=== PATIENT | male | born 1985 | race Caucasian/White ===

== ENCOUNTER 2017-11-23 10:28 | Emergency (ER) | payer OTHER ==
[~2017-11-23] VITALS: Ht 172.7 cm; Wt 80.7 kg
[~2017-11-23 10:28] MED LIST: ALBU90OI INH; AMOCLA875 PO; AMOX500 PO; ANTOXYBENA RIGHTEAR; ASCO500 PO; AZIT250 PO; Amoxicillin875 MG PO; BENZ100A PO; Bactrim Ds Tab1 EACH PO; CELE100; CEPH500 PO; CRUTCH3 USE; CYCL10 PO; Ciprodex Otic7.5 ML RIGHTEAR; HYDACE5 PO; IBUP800 PO; Keflex500 MG PO; NAPR500 PO; NAPR550 PO; Naprosyn500 MG PO; Norco 5-325 Ta1 EACH PO; ONDA8 PO; OXYACE5T PO; PENVK500 PO; PROCODE120 PO; PROM25 PO; PROM25S PR; Percocet 5-3251 EACH PO; RANI150 PO; RXCODACET PO; RXCYCL10 PO; RXHYDACE PO; RXNAPNA550 PO; RXOXYACE PO; RXSULTRIDS PO; SULTRIDS PO; TOBR.3OPSO OP; TRAM50 PO; Ultram50 MG PO; Valium5 MG PO; Ventolin/Prove6.7 GM INH; Zofran Odt4 MG SL; Zovirax800 MG PO
[2017-11-23] MEDS ORDERED: CEPH500 PO (10:51)
[2017-11-23] MEDS ORDERED: NAPR550 PO (10:51)
[2017-11-23] MEDS ORDERED: Bactrim Ds Tab1 EACH PO (10:51)
[2017-11-24] MEDS ORDERED: HYDR1TAB94 PO (13:14)
== END 2017-11-23 11:00 | disposition home or self-care (01) ==
LOC: ER 10:28
DX: K13.0 Diseases of lips (principal); K21.9 Gastro-esophageal reflux disease without esophagitis; F17.200 Nicotine dependence, unspecified, uncomplicated
CPT/HCPCS: 99283

== ENCOUNTER 2017-11-24 10:36 | Emergency (ER) | payer OTHER ==
[~2017-11-24] VITALS: Ht 172.7 cm; Wt 79.8 kg
[2017-11-24 12:22] LABS: BASOPHILS ABSOLUTE AUTO 0.05 K/mm3 (0.00-0.23); BASOPHILS PERCENT AUTO 0 % (0-2); EOSINOPHILS PERCENT AUTO 2 % (0-6); Hematocrit 44.6 % (37.0-53.0); IMMATURE GRAN ABSOLUTE AUTO 0.03 K/mm3 (0.00-0.10); IMMATURE GRAN PERCENT AUTO 0 % (0-1); LYMPHOCYTES ABSOLUTE AUTO 1.58 K/mm3 (0.84-5.20); LYMPHOCYTES PERCENT AUTO 14 % (21-46); MONOCYTES ABSOLUTE AUTO 1.11 K/mm3 (0.16-1.47); MONOCYTES PERCENT AUTO 10 % (4-13); Mean Corpuscular HGB 31.7 pg (26.0-34.0); Mean Corpuscular HGB Conc 33.6 g/dL (31.5-36.5); Mean Corpuscular Volume 94 fL (80-100); Mean Platelet Volume 8.5 fL (9.1-12.4); NEUTROPHILS ABSOLUTE AUTO 8.45 K/mm3 (1.96-9.15); NEUTROPHILS PERCENT AUTO 74 % (41-73); Platelet Count 335 K/mm3 (150-400); RDW Coefficient Variation 12.2 % (11.7-14.2); RDW Standard Deviation 42.7 fL (35.1-46.3); Red Blood Cell Count 4.73 M/mm3 (4.30-5.90); White Blood Cell Count 11.42 K/mm3 (4.00-11.30)
[2017-11-24 12:41] LABS: Alanine Aminotransfer (ALT/SGP 137 U/L (12-78); Albumin, Blood 3.6 g/dL (3.4-5.0); Albumin/Globulin Ratio 0.8 (0.8-1.8); Alk Phos 201 U/L (50-136); Anion Gap 6 mmol/L (6-16); Aspartate Aminotrans (AST/SGOT 89 U/L (12-37); Bilirubin, Total 0.3 mg/dL (0.1-1.0); Blood Urea Nitrogen 10 mg/dL (8-24); Bun/Creatinine Ratio 10.4 (12.0-20.0); CO2, Blood 28 mmol/L (21-32); Calcium, Blood 8.9 mg/dL (8.5-10.1); Chloride, Blood 105 mmol/L (98-108); Creatinine, Blood 0.96 mg/dL (0.60-1.20); Globulin, Blood 4.3 g/dL (2.2-4.0); Glomerular Filtration Rate >60 (60-); Glucose, Blood 107 mg/dL (70-99); Potassium, Blood 4.5 mmol/L (3.5-5.5); Sodium, Blood 139 mmol/L (136-145); Total Protein, Blood 7.9 g/dL (6.4-8.2)
[2017-11-24] MEDS ORDERED: HYDR1TAB94 PO (13:14)
== END 2017-11-24 13:30 | disposition home or self-care (01) ==
LOC: ER 10:36
PROVIDERS: Emergency Medicine
DX: L03.211 Cellulitis of face (principal); Z79.899 Other long term (current) drug therapy; K21.9 Gastro-esophageal reflux disease without esophagitis; F17.210 Nicotine dependence, cigarettes, uncomplicated
CPT/HCPCS: 36415; 80053; 85025; 96374; 99283-25; J0690

== ENCOUNTER 2019-01-29 15:19 | Inpatient (IN) | payer OTHER ==
[~2019-01-29] VITALS: Ht 172.7 cm; Wt 75.2 kg
[~2019-01-29 15:19] MED LIST changes: +HYDR1TAB94 PO
[2019-01-29 15:38] LABS: BASOPHILS ABSOLUTE AUTO 0.06 K/mm3 (0.00-0.23); BASOPHILS PERCENT AUTO 0 % (0-2); EOSINOPHILS PERCENT AUTO 0 % (0-6); Hematocrit 39.2 % (37.0-53.0); Hemoglobin 13.1 g/dL (13.5-17.5); IMMATURE GRAN ABSOLUTE AUTO 0.25 K/mm3 (0.00-0.10); IMMATURE GRAN PERCENT AUTO 1 % (0-1); LYMPHOCYTES ABSOLUTE AUTO 0.86 K/mm3 (0.84-5.20); LYMPHOCYTES PERCENT AUTO 4 % (21-46); MONOCYTES ABSOLUTE AUTO 1.66 K/mm3 (0.16-1.47); MONOCYTES PERCENT AUTO 8 % (4-13); Mean Corpuscular HGB 31.5 pg (26.0-34.0); Mean Corpuscular HGB Conc 33.4 g/dL (31.5-36.5); Mean Corpuscular Volume 94 fL (80-100); Mean Platelet Volume 8.5 fL (9.1-12.4); NEUTROPHILS ABSOLUTE AUTO 17.44 K/mm3 (1.96-9.15); NEUTROPHILS PERCENT AUTO 86 % (41-73); Platelet Count 298 K/mm3 (150-400); RDW Coefficient Variation 12.1 % (11.7-14.2); RDW Standard Deviation 42.3 fL (35.1-46.3); Red Blood Cell Count 4.16 M/mm3 (4.30-5.90); White Blood Cell Count 20.27 K/mm3 (4.00-11.30)
[2019-01-29 15:55] LABS: Alanine Aminotransfer (ALT/SGP 35 U/L (12-78); Albumin, Blood 3.3 g/dL (3.4-5.0); Albumin/Globulin Ratio 0.8 (0.8-1.8); Alk Phos 112 U/L (50-136); Anion Gap 6 mmol/L (6-16); Aspartate Aminotrans (AST/SGOT 24 U/L (12-37); Bilirubin, Total 0.8 mg/dL (0.1-1.0); Blood Urea Nitrogen 13 mg/dL (8-24); Bun/Creatinine Ratio 11.5 (12.0-20.0); CO2, Blood 25 mmol/L (21-32); Calcium, Blood 8.4 mg/dL (8.5-10.1); Chloride, Blood 103 mmol/L (98-108); Creatinine, Blood 1.13 mg/dL (0.60-1.20); Globulin, Blood 3.9 g/dL (2.2-4.0); Glomerular Filtration Rate >60 (60-); Glucose, Blood 93 mg/dL (70-99); Potassium, Blood 4.2 mmol/L (3.5-5.5); Sodium, Blood 134 mmol/L (136-145); Total Protein, Blood 7.2 g/dL (6.4-8.2)
[2019-01-29 16:06] LABS: Influenza A Negative (NEGATIVE); Influenza B Negative (NEGATIVE)
[2019-01-29] MEDS ORDERED: GABA300 PO (16:56)
[2019-01-29 19:03] LABS: Base Excess Venous -1.9 mmol/L; Bicarbonate Venous 23.1 mmol/L (24.0-30.0); PCO2 Venous 37.8 mmHg (38-42); PO2 Venous 172 mmHg (38-42); pH Blood Venous 7.39 (7.34-7.37)
--- NOTE | 2019-01-29 20:20 | NUR ---
PATIENT ARRIVED BY ER DOMINGO, TRANSFERRED SELF WITH NO ISSUES. PATIENT ALERT AND ORIENTED, C/O CHEST PAIN TO UPPER RIGHT CHEST WHEN COUGHING, DENIES NEED FOR MEDICATION AT THIS TIME. ALL VSS AND WNL EXCEPTING TACHY HEART RATE AT 98 AND TEMP AT 99.2. PATIENT ORIENTED TO ROOM AND UNIT, BELONGINGS SECURED, PT REPORTS NO VALUABLES OTHER THAN CELLPHONE. WILL CONTINUE TO MONITOR.
[2019-01-30 04:42] LABS: BASOPHILS ABSOLUTE AUTO 0.07 K/mm3 (0.00-0.23); BASOPHILS PERCENT AUTO 0 % (0-2); Hematocrit 34.7 % (37.0-53.0); Hemoglobin 11.5 g/dL (13.5-17.5); LYMPHOCYTES ABSOLUTE AUTO 2.23 K/mm3 (0.84-5.20); LYMPHOCYTES PERCENT AUTO 12 % (21-46); MONOCYTES ABSOLUTE AUTO 1.57 K/mm3 (0.16-1.47); MONOCYTES PERCENT AUTO 8 % (4-13); Mean Corpuscular HGB 31.4 pg (26.0-34.0); Mean Corpuscular HGB Conc 33.1 g/dL (31.5-36.5); Mean Corpuscular Volume 95 fL (80-100); Mean Platelet Volume 8.8 fL (9.1-12.4); Platelet Count 257 K/mm3 (150-400); RDW Coefficient Variation 12.4 % (11.7-14.2); RDW Standard Deviation 43.4 fL (35.1-46.3); Red Blood Cell Count 3.66 M/mm3 (4.30-5.90); White Blood Cell Count 19.23 K/mm3 (4.00-11.30)
[2019-01-30 04:44] LABS: EOSINOPHILS ABSOLUTE AUTO 0.02 K/mm3 (0.00-0.68); EOSINOPHILS PERCENT AUTO 0 % (0-6); IMMATURE GRAN ABSOLUTE AUTO 0.84 K/mm3 (0.00-0.10); IMMATURE GRAN PERCENT AUTO 4 % (0-1); NEUTROPHILS PERCENT AUTO 75 % (41-73)
[2019-01-30 04:56] LABS: Anion Gap 5 mmol/L (6-16); Blood Urea Nitrogen 21 mg/dL (8-24); CO2, Blood 25 mmol/L (21-32); Calcium, Blood 7.9 mg/dL (8.5-10.1); Chloride, Blood 107 mmol/L (98-108); Glomerular Filtration Rate >60 (60-); Glucose, Blood 79 mg/dL (70-99); Potassium, Blood 4.1 mmol/L (3.5-5.5); Sodium, Blood 137 mmol/L (136-145)
[2019-01-30 05:14] LABS: U Amphetamine Screen DETECTED; U Methamphetamine Screen DETECTED
[2019-01-30 05:15] LABS: U Barbituate Screen Not Detected; U Benzodiazapine Screen Not Detected; U Buprenorphine Screen Not Detected; U Cannabinoids Screen Not Detected; U Cocaine Screen Not Detected; U Methadone Screen Not Detected; U Opiates Screen DETECTED; U Oxycodone Screen Not Detected; U Phencyclidine Screen Not Detected; U Propoxyphene Screen Not Detected
[2019-01-30 06:53] LABS: Adenovirus Not Detected (NOT DETECT); Bordetella pertussis Not Detected (NOT DETECT); Chlamydophila pneumoniae Not Detected (NOT DETECT); Coronavirus 229E Not Detected (NOT DETECT); Coronavirus HKU1 Not Detected (NOT DETECT); Coronavirus NL63 Not Detected (NOT DETECT); Coronavirus OC43 Not Detected (NOT DETECT); Human Metapneumovirus Not Detected (NOT DETECT); Human Rhinovirus/Enterovirus Detected (NOT DETECT); Influenza A Not Detected (NOT DETECT); Influenza A/2009-H1 Not Detected (NOT DETECT); Influenza A/H1 Not Detected (NOT DETECT); Influenza A/H3 Not Detected (NOT DETECT); Influenza B Not Detected (NOT DETECT); Mycoplasma pneumoniae Not Detected (NOT DETECT); Parainfluenza Virus 1 Not Detected (NOT DETECT); Parainfluenza Virus 2 Not Detected (NOT DETECT); Parainfluenza Virus 3 Not Detected (NOT DETECT); Parainfluenza Virus 4 Not Detected (NOT DETECT); Respiratory Syncytial Virus Not Detected (NOT DETECT)
--- NOTE | 2019-01-30 07:45 | NUR ---
SHIFT SUMMARY PATIENT SLEPT SOUNDLY FOR MOST OF THE SHIFT. PATIENT REPORTS BEING A LIGHT SLEEPER, BUT REQUIRED LOUD VOICE AND SOMETIMES TOUCH TO ROUSE FOR ROUTINE INTERVENTIONS. PATIENT WAS MEDICATED ONCE PER REQUEST FOR PAIN TO UPPER RT CHEST, AND SOON AFTERWARDS WAS ASLEEP AGAIN. OTHERWISE NO ISSUES. RESP PANEL AND URINE TOX SAMPLES OBTAINED AND SENT TO LAB. PATIENT REMAINED ABOVE 94% O2 SATURATION ON ROOM AIR FOR THE ENTIRE SHIFT, AND LUNG SOUNDS WERE CLEAR TO COARSE, WITH NO CRACKLES. PASSED CARE AND REPORT TO ONCOMING SHIFT AT 0700, PATIENT SLEEPING IN BED, BED LOCKED AND LOW, CALL LIGHT W/IN REACH
--- NOTE | 2019-01-30 08:00 | NUR ---
pt laying in bed asking for pain meds, but falls asleep. will be here soon will ask for oral pain meds. pt is a/ox3, pleasant and cooperative with care, follows commands well, lungs are clear in upper tovar, course in bases, resp even and unlabored at rest, but becomes labored with activity, is on r/a, has a harsh occ productive cough, hrr, tele in place running st per monitor, see strip, no edema noted, ppp+2, cap refill <3 sec, vs stable, afebrile, iv site is clear and patent, btx4, abd flat soft nontender, voids without diff, skin c/w/d, maew, gerardo, call light in reach.
--- NOTE | 2019-01-30 13:30 | NUR ---
pt laying in bed, going to take a shower, doing ok, but hurts when coughs, oral pain meds were given. call light in reach.
--- NOTE | 2019-01-30 18:13 | NUR ---
pt resting in bed, he did have a shower today and gets up indep to br, gave him an I.S. and flutter he worked on it a lot and was able to bring up some phlem. no further needs, call light in reach.
--- NOTE | 2019-01-30 22:14 | NUR ---
ASSUMED CARE APPROXIMATELY 1900; PT A&O; COMPLIANT W/ CARE; PT ON RA W/ O2 SATS>94; PT STATES HE HAS SMALL AMOUNT OF BLOOD IN SPUTUM; LUNG SOUNDS COARSE IN BASES; NO TELE IN PLACE; CALL LIGHT IN REACH; BED IN LOWEST POSITION; WILL CONTINUE TO MONITOR CLOSELY
[2019-01-31 04:44] LABS: BASOPHILS ABSOLUTE AUTO 0.07 K/mm3 (0.00-0.23); BASOPHILS PERCENT AUTO 1 % (0-2); EOSINOPHILS ABSOLUTE AUTO 0.22 K/mm3 (0.00-0.68); EOSINOPHILS PERCENT AUTO 2 % (0-6); Hematocrit 33.8 % (37.0-53.0); Hemoglobin 11.1 g/dL (13.5-17.5); IMMATURE GRAN ABSOLUTE AUTO 0.06 K/mm3 (0.00-0.10); IMMATURE GRAN PERCENT AUTO 1 % (0-1); LYMPHOCYTES ABSOLUTE AUTO 2.16 K/mm3 (0.84-5.20); LYMPHOCYTES PERCENT AUTO 18 % (21-46); MONOCYTES ABSOLUTE AUTO 0.75 K/mm3 (0.16-1.47); MONOCYTES PERCENT AUTO 6 % (4-13); Mean Corpuscular HGB 31.7 pg (26.0-34.0); Mean Corpuscular HGB Conc 32.8 g/dL (31.5-36.5); Mean Corpuscular Volume 97 fL (80-100); Mean Platelet Volume 9.1 fL (9.1-12.4); NEUTROPHILS ABSOLUTE AUTO 8.74 K/mm3 (1.96-9.15); NEUTROPHILS PERCENT AUTO 73 % (41-73); Platelet Count 255 K/mm3 (150-400); RDW Coefficient Variation 12.5 % (11.7-14.2); RDW Standard Deviation 44.4 fL (35.1-46.3)
--- NOTE | 2019-01-31 06:03 | NUR ---
SHIFT SUMMARY PT A&O; INDEPENDENT IN ROOM; COMPLIANT W/ CARE; SLEPT SEVERAL HOURS IN BETWEEN INTERVENTIONS; STATES CHEST HURTS W/ COUGHING; ATE SANDWICH AND PUDDING IN NIGHT; PT ON RA SATS >94; CRACKLES PRESENT; CALL LIGHT IN REACH; BED IN LOWEST POSITION; WILL CONTINUE TO MONITOR UNTIL HAND OFF TO DAY SHIFT RN.
--- NOTE | 2019-01-31 08:19 | NUR ---
AM NOTE... ASSUMED CARE OF PT APROX 0700. PT IS A&Ox4 AND IND IN THE ROOM. PT WAS ADMITTED FOR PNA. PT IS CURRENTLY ON RA WITH O2 SATS AT 97%. PT STATES THAT HE FEELS SOB, RR IS 18 EVEN AND UNLABORED. PT IS IN NSR IN THE 80'S, NO EDEMA IS NOTED, PT STATES THAT THE FIRST 2 FINGERS ON HIS RIGHT HAND "FEEL SWOLLEN TO ME AND ARE RENEE NUMB AND TINGLING." BOTH OF PT'S HANDS AND FINGERS/FINGERNAILS ARE CRACKED AND DIRTY, SHOWER HAS BEEN ENCOURAGED TODAY. L/S CLEAR IN THE UPPER LOBE AND COARSE IN THE MID AND LOWER LOBES. BT PRESENT AND HYPERACTIVE, ABD IS SOFT AND NONTENDER TO PALP. PT ATE ALL OF HIS BREAKFAST TRAY AND WAS REQUESTING ANOTHER, AND EXTRA TRAY WAS ORDERED FOR THE PT. CALL LIGHT IN REACH, WILL CONTINUE TO MONITOR.
--- NOTE | 2019-01-31 12:48 | NUR ---
echocardiogram complete
--- NOTE | 2019-01-31 18:03 | NUR ---
SHIFT SUMAMRY... NO ACUTE NEGATIVE CHANGES NOTED THIS SHIFT. PT'S VS HAVE BEEN STABLE, PT HAS BEEN IND IN THE ROOM. PT DENIES CHEST PAIN/PRESSURE N/V OR SOB. CALL LIGHT IN REACH, BED IS LOCKED AND LOW WILL CONTINUE TO MONITOR UNTIL REPORT IS GIVEN TO ONCOMING RN.
--- NOTE | 2019-01-31 19:40 | NUR ---
ASSUMED CARE APPROXIMATELY 1900; PT A&O x4; PT PLEASANT AND COMPLIANT W/ CARE; PT REQUEST NUMEROUS SNACKS AND IS APPRECIATIVE; PT ON RA; O2 SATS >94; VSS; PT DENIES CHEST PAIN; DENIES NEEDS AT THIS TIME; CALL LIGHT IN REACH; BED IN LOWEST POSITION; WILL CONTINUE TO MONITOR CLOSELY
[2019-02-01 06:14] LABS: BASOPHILS ABSOLUTE AUTO 0.06 K/mm3 (0.00-0.23); BASOPHILS PERCENT AUTO 1 % (0-2); EOSINOPHILS ABSOLUTE AUTO 0.25 K/mm3 (0.00-0.68); EOSINOPHILS PERCENT AUTO 4 % (0-6); Hematocrit 35.1 % (37.0-53.0); Hemoglobin 11.6 g/dL (13.5-17.5); IMMATURE GRAN ABSOLUTE AUTO 0.04 K/mm3 (0.00-0.10); IMMATURE GRAN PERCENT AUTO 1 % (0-1); LYMPHOCYTES ABSOLUTE AUTO 2.04 K/mm3 (0.84-5.20); LYMPHOCYTES PERCENT AUTO 35 % (21-46); MONOCYTES ABSOLUTE AUTO 0.49 K/mm3 (0.16-1.47); MONOCYTES PERCENT AUTO 8 % (4-13); Mean Corpuscular HGB 31.4 pg (26.0-34.0); Mean Corpuscular Volume 95 fL (80-100); Mean Platelet Volume 8.8 fL (9.1-12.4); NEUTROPHILS ABSOLUTE AUTO 2.98 K/mm3 (1.96-9.15); NEUTROPHILS PERCENT AUTO 51 % (41-73); Platelet Count 323 K/mm3 (150-400); RDW Coefficient Variation 12.3 % (11.7-14.2); RDW Standard Deviation 42.9 fL (35.1-46.3); Red Blood Cell Count 3.69 M/mm3 (4.30-5.90); White Blood Cell Count 5.86 K/mm3 (4.00-11.30)
[2019-02-01] MEDS ORDERED: CLIN300 PO (10:42)
--- NOTE | 2019-02-01 11:18 | NUR ---
DISCHARGE PT DISCHARGED TOT HE STREETS. [place]. HE WAS UNABLE TO REACH A PERSONAL RIDE. HE RFUSED A TAXI TO [facility]. HE WANTED TO WALK. ATTEMPTED TO TALK HIM INTO A RIDE. [facility] DID PROVIDE PT ANTIBIOTIC THRU [facility] =MALL. PT WILL LEAVE AFTER LUNCH. CONTINUE POT.
== END 2019-02-01 12:12 | disposition home or self-care (01) | DRG 871 ==
LOC: ER 15:19 → PCU 17:30
PROVIDERS: Hospitalist; Physician Assistant; ADMIT Internal Medicine
DX: A41.89 Other specified sepsis (principal); J18.9 Pneumonia, unspecified organism; E87.1 Hypo-osmolality and hyponatremia; R65.20 Severe sepsis without septic shock; R19.7 Diarrhea, unspecified; F19.10 Other psychoactive substance abuse, uncomplicated; F17.210 Nicotine dependence, cigarettes, uncomplicated
CPT/HCPCS: 0099U; 36415; 71046; 80048; 80053; 82803; 83605; 84145; 85025; 87040; 87077; 87186; 87804; 93005; 93010; 93306; 94640; 94667; 94760; 96365; 96375; 99285-25; J0456; J0696; J1170; J1650; J1885; J2405; J7030; J7050

== ENCOUNTER 2020-02-07 21:51 | Emergency (ER) | payer OTHER ==
[~2020-02-07] VITALS: Ht 172.7 cm; Wt 77.1 kg
[~2020-02-07 21:51] MED LIST changes: +CLIN300 PO; +GABA300 PO
[2020-02-07 22:08] LABS: BASOPHILS ABSOLUTE AUTO 0.06 K/mm3 (0.00-0.23); BASOPHILS PERCENT AUTO 1 % (0-2); EOSINOPHILS ABSOLUTE AUTO 0.16 K/mm3 (0.00-0.68); EOSINOPHILS PERCENT AUTO 2 % (0-6); Hematocrit 47.5 % (37.0-53.0); Hemoglobin 15.3 g/dL (13.5-17.5); IMMATURE GRAN ABSOLUTE AUTO 0.02 K/mm3 (0.00-0.10); IMMATURE GRAN PERCENT AUTO 0 % (0-1); LYMPHOCYTES ABSOLUTE AUTO 0.82 K/mm3 (0.84-5.20); LYMPHOCYTES PERCENT AUTO 9 % (21-46); MONOCYTES ABSOLUTE AUTO 1.05 K/mm3 (0.16-1.47); MONOCYTES PERCENT AUTO 11 % (4-13); Mean Corpuscular HGB 30.2 pg (26.0-34.0); Mean Corpuscular HGB Conc 32.2 g/dL (31.5-36.5); Mean Corpuscular Volume 94 fL (80-100); Mean Platelet Volume 8.4 fL (9.1-12.4); NEUTROPHILS ABSOLUTE AUTO 7.41 K/mm3 (1.96-9.15); NEUTROPHILS PERCENT AUTO 78 % (41-73); Platelet Count 302 K/mm3 (150-400); RDW Coefficient Variation 12.6 % (11.7-14.2); RDW Standard Deviation 43.4 fL (35.1-46.3); Red Blood Cell Count 5.07 M/mm3 (4.30-5.90); White Blood Cell Count 9.52 K/mm3 (4.00-11.30)
[2020-02-07 22:26] LABS: Alanine Aminotransfer (ALT/SGP 124 U/L (12-78); Albumin, Blood 3.7 g/dL (3.4-5.0); Albumin/Globulin Ratio 0.8 (0.8-1.8); Alk Phos 231 U/L (50-136); Anion Gap 4 mmol/L (6-16); Aspartate Aminotrans (AST/SGOT 50 U/L (12-37); Bilirubin, Total 0.4 mg/dL (0.1-1.0); Blood Urea Nitrogen 16 mg/dL (8-24); Bun/Creatinine Ratio 18.6 (12.0-20.0); CO2, Blood 26 mmol/L (21-32); Calcium, Blood 9.3 mg/dL (8.5-10.1); Chloride, Blood 105 mmol/L (98-108); Creatinine, Blood 0.86 mg/dL (0.60-1.20); Globulin, Blood 4.6 g/dL (2.2-4.0); Glomerular Filtration Rate >60 (60-); Glucose, Blood 100 mg/dL (70-99); Potassium, Blood 4.8 mmol/L (3.5-5.5); Sodium, Blood 135 mmol/L (136-145); Total Protein, Blood 8.3 g/dL (6.4-8.2)
[2020-02-07 23:35] LABS: Influenza A, PCR Negative (NEGATIVE); Influenza B, PCR Negative (NEGATIVE); Resp Syncytial Virus, PCR Negative (NEGATIVE); SARS-Cov-2 (COVID-19) PCR, MMC Negative (NEGATIVE)
[2020-02-07] MEDS ORDERED: DICY20 PO (23:40)
[2020-02-07] MEDS ORDERED: ONDA4ODT MM (23:40)
== END 2020-02-08 | disposition home or self-care (01) ==
LOC: ER 21:51
PROVIDERS: Physician Assistant
DX: K52.9 Noninfective gastroenteritis and colitis, unspecified (principal); K21.9 Gastro-esophageal reflux disease without esophagitis; F17.210 Nicotine dependence, cigarettes, uncomplicated; Z79.899 Other long term (current) drug therapy; Z20.828 Contact with and (suspected) exposure to other viral communicable diseases
CPT/HCPCS: 0241U; 36415; 80053; 83690; 85025; 96374; 96375; 99284-25; A9270-GY; J1885; J2405; J7030

== ENCOUNTER 2020-08-13 10:37 | Emergency (ER) | payer OTHER ==
[~2020-08-13] VITALS: Ht 172.7 cm; Wt 81.7 kg
[~2020-08-13 10:37] MED LIST changes: +DICY20 PO; +ONDA4ODT MM
[2020-08-13] MEDS ORDERED: KETO10 PO (12:41)
== END 2020-08-13 12:55 | disposition home or self-care (01) ==
LOC: ER 10:37
DX: S91.311A Laceration without foreign body, right foot, initial encounter (principal); F17.210 Nicotine dependence, cigarettes, uncomplicated; Z79.899 Other long term (current) drug therapy; W26.0XXA Contact with knife, initial encounter
CPT/HCPCS: 73630; 99283-25

== ENCOUNTER 2020-08-17 03:30 | Emergency (ER) | payer OTHER ==
[~2020-08-17] VITALS: Ht 172.7 cm; Wt 86.2 kg
[~2020-08-17 03:30] MED LIST changes: +KETO10 PO
[2020-08-17] MEDS ORDERED: Veetids 500500 MG PO (05:08)
== END 2020-08-17 05:19 | disposition home or self-care (01) ==
LOC: ER 03:30
DX: J02.0 Streptococcal pharyngitis (principal); K21.9 Gastro-esophageal reflux disease without esophagitis; F17.210 Nicotine dependence, cigarettes, uncomplicated; Z79.899 Other long term (current) drug therapy
CPT/HCPCS: 87430; 96372; 99283-25; A9270; J1100; J1885

== ENCOUNTER 2020-09-10 01:10 | Emergency (ER) | payer OTHER ==
[~2020-09-10 01:10] MED LIST changes: +Veetids 500500 MG PO
== END 2020-09-10 01:25 | disposition left against medical advice (07) ==
LOC: ER 01:10
DX: Z53.21 Procedure and treatment not carried out due to patient leaving prior to being seen by health care provider (principal)
CPT/HCPCS: 96376

== ENCOUNTER 2021-02-04 03:10 | Emergency (ER) | payer OTHER ==
[~2021-02-04] VITALS: Ht 172.7 cm; Wt 81.7 kg
[~2021-02-04 03:10] MED LIST changes: +Neurontin 300300 MG PO; +Voltaren100 GM TOP
[2021-02-04] MEDS ORDERED: IBU600 MG PO (03:45)
[2021-02-04] MEDS ORDERED: Bactrim Ds Tab1 EACH PO (03:45)
[2021-02-04 04:22] LABS: U Amphetamine Screen DETECTED; U Barbituate Screen Not Detected; U Benzodiazapine Screen Not Detected; U Buprenorphine Screen Not Detected; U Cannabinoids Screen Not Detected; U Cocaine Screen Not Detected; U Methadone Screen Not Detected; U Methamphetamine Screen DETECTED; U Opiates Screen Not Detected; U Oxycodone Screen Not Detected; U Phencyclidine Screen Not Detected; U Propoxyphene Screen Not Detected
[2021-02-04] MEDS ORDERED: CEPH500 PO (23:18)
== END 2021-02-04 04:08 | disposition home or self-care (01) ==
LOC: ER 03:10
PROVIDERS: Emergency Medicine
DX: L03.116 Cellulitis of left lower limb (principal); F17.210 Nicotine dependence, cigarettes, uncomplicated
CPT/HCPCS: 99283; A9270

== ENCOUNTER 2021-02-04 21:54 | Inpatient (IN) | payer OTHER ==
[~2021-02-04] VITALS: Ht 172.7 cm; Wt 81.7 kg
[~2021-02-04 21:54] MED LIST changes: +IBU600 MG PO
[2021-02-04] MEDS ORDERED: CEPH500 PO (23:18)
[2021-02-05 00:01] LABS: BASOPHILS ABSOLUTE AUTO 0.13 K/mm3 (0.00-0.23); BASOPHILS PERCENT AUTO 1 % (0-2); EOSINOPHILS ABSOLUTE AUTO 0.56 K/mm3 (0.00-0.68); EOSINOPHILS PERCENT AUTO 4 % (0-6); Hematocrit 36.7 % (37.0-53.0); Hemoglobin 12.6 g/dL (13.5-17.5); IMMATURE GRAN ABSOLUTE AUTO 0.07 K/mm3 (0.00-0.10); IMMATURE GRAN PERCENT AUTO 1 % (0-1); LYMPHOCYTES ABSOLUTE AUTO 2.07 K/mm3 (0.84-5.20); LYMPHOCYTES PERCENT AUTO 14 % (21-46); MONOCYTES ABSOLUTE AUTO 1.91 K/mm3 (0.16-1.47); MONOCYTES PERCENT AUTO 13 % (4-13); Mean Corpuscular HGB 30.5 pg (26.0-34.0); Mean Corpuscular HGB Conc 34.3 g/dL (31.5-36.5); Mean Corpuscular Volume 89 fL (80-100); Mean Platelet Volume 8.6 fL (9.1-12.4); NEUTROPHILS ABSOLUTE AUTO 10.57 K/mm3 (1.96-9.15); NEUTROPHILS PERCENT AUTO 69 % (41-73); Platelet Count 419 K/mm3 (150-400); RDW Coefficient Variation 12.2 % (11.7-14.2); RDW Standard Deviation 39.8 fL (35.1-46.3); Red Blood Cell Count 4.13 M/mm3 (4.30-5.90); White Blood Cell Count 15.31 K/mm3 (4.00-11.30)
[2021-02-05 00:23] LABS: Alanine Aminotransfer (ALT/SGP 152 U/L (12-78); Albumin, Blood 3.1 g/dL (3.4-5.0); Albumin/Globulin Ratio 0.6 (0.8-1.8); Alk Phos 316 U/L (50-136); Anion Gap 7 mmol/L (6-16); Aspartate Aminotrans (AST/SGOT 77 U/L (12-37); Bilirubin, Total 0.7 mg/dL (0.1-1.0); Blood Urea Nitrogen 17 mg/dL (8-24); CO2, Blood 26 mmol/L (21-32); Calcium, Blood 9.3 mg/dL (8.5-10.1); Chloride, Blood 101 mmol/L (98-108); Creatinine, Blood 1.06 mg/dL (0.60-1.20); Globulin, Blood 4.9 g/dL (2.2-4.0); Glomerular Filtration Rate >60 (60-); Glucose, Blood 94 mg/dL (70-99); Potassium, Blood 4.2 mmol/L (3.5-5.5); Sodium, Blood 134 mmol/L (136-145)
[2021-02-05 08:06] LABS: BASOPHILS PERCENT AUTO 1 % (0-2); EOSINOPHILS ABSOLUTE AUTO 0.47 K/mm3 (0.00-0.68); EOSINOPHILS PERCENT AUTO 4 % (0-6); Hematocrit 36.4 % (37.0-53.0); IMMATURE GRAN ABSOLUTE AUTO 0.03 K/mm3 (0.00-0.10); IMMATURE GRAN PERCENT AUTO 0 % (0-1); LYMPHOCYTES ABSOLUTE AUTO 1.54 K/mm3 (0.84-5.20); LYMPHOCYTES PERCENT AUTO 13 % (21-46); MONOCYTES PERCENT AUTO 11 % (4-13); Mean Corpuscular HGB 30.2 pg (26.0-34.0); Mean Corpuscular Volume 92 fL (80-100); Mean Platelet Volume 8.6 fL (9.1-12.4); NEUTROPHILS ABSOLUTE AUTO 8.02 K/mm3 (1.96-9.15); NEUTROPHILS PERCENT AUTO 70 % (41-73); Platelet Count 371 K/mm3 (150-400); RDW Coefficient Variation 12.3 % (11.7-14.2); RDW Standard Deviation 41.4 fL (35.1-46.3); Red Blood Cell Count 3.97 M/mm3 (4.30-5.90); White Blood Cell Count 11.46 K/mm3 (4.00-11.30)
[2021-02-05 08:24] LABS: Alanine Aminotransfer (ALT/SGP 127 U/L (12-78); Albumin, Blood 2.7 g/dL (3.4-5.0); Albumin/Globulin Ratio 0.7 (0.8-1.8); Alk Phos 297 U/L (50-136); Anion Gap 6 mmol/L (6-16); Aspartate Aminotrans (AST/SGOT 59 U/L (12-37); Bilirubin, Total 0.7 mg/dL (0.1-1.0); Blood Urea Nitrogen 16 mg/dL (8-24); Bun/Creatinine Ratio 15.8 (12.0-20.0); CO2, Blood 28 mmol/L (21-32); Calcium, Blood 8.4 mg/dL (8.5-10.1); Chloride, Blood 104 mmol/L (98-108); Creatinine, Blood 1.01 mg/dL (0.60-1.20); Globulin, Blood 3.8 g/dL (2.2-4.0); Glomerular Filtration Rate >60 (60-); Glucose, Blood 134 mg/dL (70-99); Potassium, Blood 4.1 mmol/L (3.5-5.5); Sodium, Blood 138 mmol/L (136-145); Total Protein, Blood 6.5 g/dL (6.4-8.2)
--- NOTE | 2021-02-05 17:35 | NUR ---
SUMMARY PT ADMITTED FROM THE ER FOR CELLULITIS, PT IS ALERT AND ORIENTED, USES A CANE OUTPATIENT FOR AMBULATION, PT'S LLE IS RED AND WARM TO THE TOUCH, NO OPEN AREAS OR DRAINAGE NOTED, ORTHO CONSULT CALLED, PT MED PER EMAR FOR PAIN, VSS, WILL CONTINUE TO MONITOR
[2021-02-06 04:41] LABS: BASOPHILS ABSOLUTE AUTO 0.09 K/mm3 (0.00-0.23); BASOPHILS PERCENT AUTO 1 % (0-2); EOSINOPHILS ABSOLUTE AUTO 0.62 K/mm3 (0.00-0.68); EOSINOPHILS PERCENT AUTO 5 % (0-6); Hematocrit 36.4 % (37.0-53.0); IMMATURE GRAN ABSOLUTE AUTO 0.04 K/mm3 (0.00-0.10); IMMATURE GRAN PERCENT AUTO 0 % (0-1); LYMPHOCYTES ABSOLUTE AUTO 1.67 K/mm3 (0.84-5.20); LYMPHOCYTES PERCENT AUTO 14 % (21-46); MONOCYTES ABSOLUTE AUTO 1.38 K/mm3 (0.16-1.47); MONOCYTES PERCENT AUTO 11 % (4-13); Mean Corpuscular HGB 30.5 pg (26.0-34.0); Mean Corpuscular Volume 92 fL (80-100); Mean Platelet Volume 8.6 fL (9.1-12.4); NEUTROPHILS ABSOLUTE AUTO 8.43 K/mm3 (1.96-9.15); NEUTROPHILS PERCENT AUTO 69 % (41-73); Platelet Count 400 K/mm3 (150-400); RDW Coefficient Variation 12.3 % (11.7-14.2); Red Blood Cell Count 3.94 M/mm3 (4.30-5.90); White Blood Cell Count 12.23 K/mm3 (4.00-11.30)
--- NOTE | 2021-02-06 04:41 | NUR ---
PATIENT IS A7O X4. VERY IRRITIBLE. GAIT IS WEAK DUE TO PAIN IN LLE. STANDBY ASSIST OF ONE. PATIENTS FEVER HAS SUBSIDED AT THIS TIME. BLOOD CULTURE + FOR GRAM + COCCI IN CLUSTERS. PT HAS LR RUNNING @ 100ML/HR.
[2021-02-06 05:06] LABS: Anion Gap 6 mmol/L (6-16); Blood Urea Nitrogen 14 mg/dL (8-24); Bun/Creatinine Ratio 14.8 (12.0-20.0); CO2, Blood 25 mmol/L (21-32); Calcium, Blood 8.9 mg/dL (8.5-10.1); Chloride, Blood 107 mmol/L (98-108); Creatinine, Blood 0.95 mg/dL (0.60-1.20); Glomerular Filtration Rate >60 (60-); Glucose, Blood 103 mg/dL (70-99); Potassium, Blood 4.8 mmol/L (3.5-5.5); Sodium, Blood 138 mmol/L (136-145)
--- NOTE | 2021-02-06 10:36 | NUR ---
DR. DOTY ROUNDED. PT IS NOW NPO FOR POSSIBLE SURGERY LATER TODAY. PLAN TO GET PT TO THE SHOWER AND EDUCATE HIM TO CLEAN WITH CHLORHEXADINE SOAP PRIOR TO SURGERY.
--- NOTE | 2021-02-06 15:41 | NUR ---
Upon receiving a spiritual care referral, I visit pt. Pt tells me about his infection and the procedure that is scheduled to remove said infection. Pt then talks about the struggle he is having with Meth addiction, PTSD, family unit complications and financial struggles. I encourage self-care, discuss strategies for healthier living and relationship building. Pt also discusses his belief in aliens and his distress with his [employer] refugio. I provide theological insights and therapeutic listening. Patient responds well and shows signs of increased hope. I will continue to remain available to patient and family.
--- NOTE | 2021-02-06 16:03 | NUR ---
History, Chart, Medications and Allergies reviewed before start of procedure. Lungs clear T/O to Auscultation. Patient confirms NPO status and agrees with scheduled surgery. Pre-Op teaching done. Pt verbalizes understanding.
--- NOTE | 2021-02-06 17:12 | NUR ---
02/06/21 1712 Moraima Mackey PATIENT ON SCHEDULED ANTIBIOTICS. ANCEF 1G GIVEN AT 1308. VANCO 1G GIVEN AT 1425
--- NOTE | 2021-02-06 18:09 | NUR ---
PT ARRIVED TO THE ROOM FROM PACU AT APPROXIMATELY 1745. PT IS ALERT AND ORIENTED. PAIN MANAGED WHILE AT REST. PT REQUESTING FOOD. TOLERATING WELL AT THIS TIME. BP ELEVATED OTHER VSS. WILL CONTINUE TO MONITOR.
--- NOTE | 2021-02-06 19:30 | NUR ---
SHIFT SUMMARY PT IS POD#0 FROM L KNEE I&D. PT IS ALERT AND ORIENTED. ABLE TO MOBILIZE USING A CANE AND WILL NEED A KNEE IMMOBLIZER WHEN OOB POST-OP. PT IS TOLERATING PO. PAIN MANAGED WITH PO PAIN MEDICATION. VSS. REPORT GIVEN TO ELAINE MARIE.
--- NOTE | 2021-02-07 04:47 | NUR ---
PATIENT SLEPT MOST OF THE SHIFT. HE REQUIRED NO PRN PAIN MEDICATION. USED URINAL OVERNIGHT BUT IF HE IS OUT OF BED WILL REQUIRE A LEG IMMOBILIZER. A&O X4. VERBALIZED NO QUESTIONS OR CONCERNS.
[2021-02-07 05:32] LABS: BASOPHILS ABSOLUTE AUTO 0.03 K/mm3 (0.00-0.23); BASOPHILS PERCENT AUTO 0 % (0-2); EOSINOPHILS ABSOLUTE AUTO 0.01 K/mm3 (0.00-0.68); EOSINOPHILS PERCENT AUTO 0 % (0-6); Hematocrit 36.4 % (37.0-53.0); IMMATURE GRAN ABSOLUTE AUTO 0.08 K/mm3 (0.00-0.10); IMMATURE GRAN PERCENT AUTO 1 % (0-1); LYMPHOCYTES ABSOLUTE AUTO 0.86 K/mm3 (0.84-5.20); LYMPHOCYTES PERCENT AUTO 7 % (21-46); MONOCYTES ABSOLUTE AUTO 0.76 K/mm3 (0.16-1.47); MONOCYTES PERCENT AUTO 6 % (4-13); Mean Corpuscular HGB 30.5 pg (26.0-34.0); Mean Corpuscular Volume 93 fL (80-100); Mean Platelet Volume 9.6 fL (9.1-12.4); NEUTROPHILS ABSOLUTE AUTO 11.35 K/mm3 (1.96-9.15); NEUTROPHILS PERCENT AUTO 87 % (41-73); Platelet Count 415 K/mm3 (150-400); RDW Standard Deviation 41.1 fL (35.1-46.3); Red Blood Cell Count 3.93 M/mm3 (4.30-5.90); White Blood Cell Count 13.09 K/mm3 (4.00-11.30)
[2021-02-07 06:18] LABS: Anion Gap 8 mmol/L (6-16); Blood Urea Nitrogen 16 mg/dL (8-24); Bun/Creatinine Ratio 18.6 (12.0-20.0); CO2, Blood 24 mmol/L (21-32); Calcium, Blood 8.6 mg/dL (8.5-10.1); Chloride, Blood 106 mmol/L (98-108); Creatinine, Blood 0.86 mg/dL (0.60-1.20); Glomerular Filtration Rate >60 (60-); Glucose, Blood 137 mg/dL (70-99); Potassium, Blood 5.5 mmol/L (3.5-5.5); Sodium, Blood 138 mmol/L (136-145)
--- NOTE | 2021-02-07 08:40 | NUR ---
PT C/O IV SITE BLEEDING. SMALL AMOUNT OF BLOOD NOTED AT THE SITE, DRESSING WAS LOOSE, IV DRESSING WAS CHANGED IV FLUSHED WELL AFTER THE CHANGE, NO REDNESS OR PAIN WITH FLUSH IVF AND ABX INFUSION RESUMED AFTER DRESSING CHANGE.
[2021-02-07 12:52] LABS: Vancomycin, Trough 14.2 ug/mL (5.0-10.0)
--- NOTE | 2021-02-07 17:49 | NUR ---
SUMMARY: PT IS POD1 L KNEE I&D. A/O, VSS. SURGICAL SITE WNL, IMMOBILIZER IN PLACE. PT ABLE TO AMBULATE IN ROOM WITH THERAPY. PT REPORTS MORE PAIN WITH MOVEMENT, MEDICATED X2. NO ACUTE SAFETY CONCERNS.
--- NOTE | 2021-02-08 04:53 | NUR ---
KAELYN HAS BEEN RESTING IN BED THE MAJORITY OF SHIFT. PATIENT REPORTS PAIN TO LLE WITH AMBULATION. MEDICATED FOR PAIN TWICE OVER NIGHT. PATIENT IS TO CONTINUE IV VANCO. VITALS REVIEWED. CALL LIGHT IN REACH BED IN LOWEST POSITION. .
[2021-02-08 05:44] LABS: BASOPHILS PERCENT AUTO 1 % (0-2); EOSINOPHILS ABSOLUTE AUTO 0.56 K/mm3 (0.00-0.68); EOSINOPHILS PERCENT AUTO 7 % (0-6); Hematocrit 35.8 % (37.0-53.0); Hemoglobin 11.5 g/dL (13.5-17.5); IMMATURE GRAN ABSOLUTE AUTO 0.02 K/mm3 (0.00-0.10); IMMATURE GRAN PERCENT AUTO 0 % (0-1); LYMPHOCYTES ABSOLUTE AUTO 2.54 K/mm3 (0.84-5.20); LYMPHOCYTES PERCENT AUTO 31 % (21-46); MONOCYTES ABSOLUTE AUTO 0.63 K/mm3 (0.16-1.47); MONOCYTES PERCENT AUTO 8 % (4-13); Mean Corpuscular HGB 30.2 pg (26.0-34.0); Mean Corpuscular HGB Conc 32.1 g/dL (31.5-36.5); Mean Corpuscular Volume 94 fL (80-100); NEUTROPHILS ABSOLUTE AUTO 4.24 K/mm3 (1.96-9.15); NEUTROPHILS PERCENT AUTO 53 % (41-73); Platelet Count 511 K/mm3 (150-400); RDW Coefficient Variation 12.3 % (11.7-14.2); RDW Standard Deviation 42.5 fL (35.1-46.3); Red Blood Cell Count 3.81 M/mm3 (4.30-5.90); White Blood Cell Count 8.09 K/mm3 (4.00-11.30)
[2021-02-08 06:35] LABS: Anion Gap 6 mmol/L (6-16); Blood Urea Nitrogen 16 mg/dL (8-24); Bun/Creatinine Ratio 18.2 (12.0-20.0); CO2, Blood 27 mmol/L (21-32); Calcium, Blood 8.5 mg/dL (8.5-10.1); Chloride, Blood 108 mmol/L (98-108); Creatinine, Blood 0.88 mg/dL (0.60-1.20); Glomerular Filtration Rate >60 (60-); Glucose, Blood 104 mg/dL (70-99); Potassium, Blood 4.8 mmol/L (3.5-5.5); Sodium, Blood 141 mmol/L (136-145)
[2021-02-08] MEDS ORDERED: DOXY100 PO (10:06)
[2021-02-08] MEDS ORDERED: HYDR1TAB94 PO (10:06)
[2021-02-08] MEDS ORDERED: Prinivil10 MG PO (10:06)
--- NOTE | 2021-02-08 14:42 | NUR ---
DR DOTY IN TO SEE PT. EXAMINED AND REPACKED KNEE. STATES PT TO STAY.
--- NOTE | 2021-02-08 15:27 | NUR ---
Patient immediately tells me about the success of the procedure done on his knee and that the infection is not in his bone. I begins to tell me about the challenges that he faces in managing a wound given his current living conditions but the visit was cut short due to patient's doctor needing to clean and redress pt's wound. I will continue to remain available.
--- NOTE | 2021-02-08 18:33 | NUR ---
CALLED DR INA FELIX AND CONTINUED IVF. PT EATING DRINKING WELL. OKAYED STOP IVF.
--- NOTE | 2021-02-08 18:40 | NUR ---
PT PLEASANT TODAY. PAIN MANAGED WITH [facility]AIL MEDS. DR DOTY IN TO CHANGE DRESSING. HOLDING DISCHARGE FOR DAY OR TWO TO GET PT UNDER BETTER CONTROL. CANNOT GET INTO ATC FOR DRESSING CHANGES UNTIL NEXT WEEK. NO OTHER CONCERNS NOTED. BED IN LOW POSITION, CALL LITE IN REACH, CALLS APPROP
--- NOTE | 2021-02-09 04:55 | NUR ---
PT IS A/OX4, BUT HAS AN OVERALL FLAT AFFECT. HIS BP CAN RUN HIGH AND THERE IS PRN HYDRALAZINE WITH PARAMETERS IF NEEDED. DR DOTY IS PEFORMING DAILY DRESSING CHANGES ON THE LEFT KNEE. 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
[2021-02-09 07:31] LABS: BASOPHILS ABSOLUTE AUTO 0.11 K/mm3 (0.00-0.23); BASOPHILS PERCENT AUTO 1 % (0-2); EOSINOPHILS ABSOLUTE AUTO 0.68 K/mm3 (0.00-0.68); EOSINOPHILS PERCENT AUTO 9 % (0-6); Hematocrit 40.4 % (37.0-53.0); Hemoglobin 13.4 g/dL (13.5-17.5); IMMATURE GRAN ABSOLUTE AUTO 0.05 K/mm3 (0.00-0.10); IMMATURE GRAN PERCENT AUTO 1 % (0-1); LYMPHOCYTES ABSOLUTE AUTO 1.81 K/mm3 (0.84-5.20); LYMPHOCYTES PERCENT AUTO 24 % (21-46); MONOCYTES ABSOLUTE AUTO 0.72 K/mm3 (0.16-1.47); MONOCYTES PERCENT AUTO 9 % (4-13); Mean Corpuscular HGB 30.3 pg (26.0-34.0); Mean Corpuscular HGB Conc 33.2 g/dL (31.5-36.5); Mean Corpuscular Volume 91 fL (80-100); Mean Platelet Volume 8.5 fL (9.1-12.4); NEUTROPHILS ABSOLUTE AUTO 4.34 K/mm3 (1.96-9.15); NEUTROPHILS PERCENT AUTO 56 % (41-73); Platelet Count 616 K/mm3 (150-400); RDW Coefficient Variation 12.2 % (11.7-14.2); RDW Standard Deviation 40.9 fL (35.1-46.3); Red Blood Cell Count 4.42 M/mm3 (4.30-5.90); White Blood Cell Count 7.71 K/mm3 (4.00-11.30)
[2021-02-09 08:02] LABS: Anion Gap 6 mmol/L (6-16); Blood Urea Nitrogen 19 mg/dL (8-24); Bun/Creatinine Ratio 22.1 (12.0-20.0); CO2, Blood 27 mmol/L (21-32); Calcium, Blood 9.2 mg/dL (8.5-10.1); Chloride, Blood 107 mmol/L (98-108); Creatinine, Blood 0.86 mg/dL (0.60-1.20); Glomerular Filtration Rate >60 (60-); Glucose, Blood 105 mg/dL (70-99); Potassium, Blood 4.4 mmol/L (3.5-5.5); Sodium, Blood 140 mmol/L (136-145)
[2021-02-09] MEDS ORDERED: ACET325 PO (14:40)
[2021-02-09] MEDS ORDERED: LISI20 PO (14:43)
--- NOTE | 2021-02-09 16:49 | NUR ---
DISCHARGE DISCHARGE MEDICATIONS AND INSTRUCTIONS EXPLAINED TO PATIENT. MEDICATION EDUCATION PROVIDED BY PHARMACIST. PATIENT STATED UNDERSTANDING. IV REMOVED WITHOUT ISSUE. JENNIFFER DELIVERED FWW. PAT TRANSFERED TO TAXI VIA WHEELCHAIR.
== END 2021-02-09 16:47 | disposition home or self-care (01) | DRG 854 ==
LOC: ER 21:54 → ERHOLD 02-05 01:41 → MEDS 02-05 01:41 → ENPENDDIS 02-08 14:56 → MEDS 02-09 16:47
PROVIDERS: Family Medicine; Orthopaedic Surgery; Student in an Organized Health Care Education/Training Program; ADMIT Family Medicine
PROC: 0M9P0ZZ Drainage of Left Knee Bursa and Ligament, Open Approach (ICD-10-PCS; 2021-02-06)
PROC: 0MBP0ZZ Excision of Left Knee Bursa and Ligament, Open Approach (ICD-10-PCS; principal; 2021-02-06 16:30)
DX: A41.9 Sepsis, unspecified organism (principal); L03.116 Cellulitis of left lower limb; E87.1 Hypo-osmolality and hyponatremia; K21.9 Gastro-esophageal reflux disease without esophagitis; G43.909 Migraine, unspecified, not intractable, without status migrainosus; D63.8 Anemia in other chronic diseases classified elsewhere; D75.839 Thrombocytosis, unspecified; F17.210 Nicotine dependence, cigarettes, uncomplicated; Z20.822 Contact with and (suspected) exposure to COVID-19; M71.062 Abscess of bursa, left knee; G89.29 Other chronic pain; M54.9 Dorsalgia, unspecified; Z79.899 Other long term (current) drug therapy; F15.10 Other stimulant abuse, uncomplicated; M70.42 Prepatellar bursitis, left knee; Z53.29 Procedure and treatment not carried out because of patient's decision for other reasons
CPT/HCPCS: 36415; 36416; 73701; 80048; 80053; 80202; 83605; 85025; 87040; 87070; 87075; 87077; 87147; 87186; 87205; 94760; 96365; 96366; 96372; 96375; 96376; 97110; 97162; 97166; 97530; 97535; 99285-25; A9270; J0360; J0690; J1100; J1170; J1650; J1885; J2270; J2405; J2704; J3010; J3370; J7030; J7050; J7120; Q9967

== ENCOUNTER 2021-02-10 09:30 | Emergency (ER) | payer OTHER ==
[~2021-02-10] VITALS: Ht 172.7 cm; Wt 81.7 kg
[~2021-02-10 09:30] MED LIST changes: +ACET325 PO; +DOXY100 PO; +LISI20 PO; +Prinivil10 MG PO
== END 2021-02-10 10:35 | disposition home or self-care (01) ==
LOC: ER 09:30
DX: Z48.817 Encounter for surgical aftercare following surgery on the skin and subcutaneous tissue (principal); G43.909 Migraine, unspecified, not intractable, without status migrainosus; K21.9 Gastro-esophageal reflux disease without esophagitis; F17.210 Nicotine dependence, cigarettes, uncomplicated; Z79.899 Other long term (current) drug therapy
CPT/HCPCS: 99283

== ENCOUNTER 2021-02-11 09:28 | Emergency (ER) | payer OTHER ==
[~2021-02-11] VITALS: Ht 172.7 cm; Wt 86.2 kg
== END 2021-02-11 10:29 | disposition other institution (70) ==
LOC: ER 09:28
DX: Z48.817 Encounter for surgical aftercare following surgery on the skin and subcutaneous tissue (principal); K21.9 Gastro-esophageal reflux disease without esophagitis; G43.909 Migraine, unspecified, not intractable, without status migrainosus; F17.210 Nicotine dependence, cigarettes, uncomplicated; Z79.899 Other long term (current) drug therapy
CPT/HCPCS: 99282

== ENCOUNTER 2021-11-25 22:19 | Emergency (ER) | payer OTHER ==
[~2021-11-25] VITALS: Ht 172.7 cm; Wt 90.7 kg
[2021-11-25] MEDS ORDERED: CEPH500 PO (23:09)
== END 2021-11-26 00:29 | disposition home or self-care (01) ==
LOC: ER 22:19
DX: L02.414 Cutaneous abscess of left upper limb (principal); K21.9 Gastro-esophageal reflux disease without esophagitis; F17.210 Nicotine dependence, cigarettes, uncomplicated
CPT/HCPCS: 99282; A9270

== ENCOUNTER 2022-03-26 00:51 | Emergency (ER) | payer OTHER ==
[~2022-03-26] VITALS: Ht 172.7 cm; Wt 90.7 kg
[2022-03-26] MEDS ORDERED: CEPH500 PO (01:53)
== END 2022-03-26 02:38 | disposition home or self-care (01) ==
LOC: ER 00:51
DX: S61.012A Laceration without foreign body of left thumb without damage to nail, initial encounter (principal); W45.8XXA Other foreign body or object entering through skin, initial encounter; L03.114 Cellulitis of left upper limb; F17.210 Nicotine dependence, cigarettes, uncomplicated
CPT/HCPCS: A9270

== ENCOUNTER → 2022-10-08 | Outpatient (CLI) | payer OTHER ==
[2022-10-08 11:45] LABS: BASOPHILS ABSOLUTE AUTO 0.09 K/mm3 (0.00-0.23); BASOPHILS PERCENT AUTO 1 % (0-2); EOSINOPHILS ABSOLUTE AUTO 0.43 K/mm3 (0.00-0.68); EOSINOPHILS PERCENT AUTO 7 % (0-6); Hematocrit 40.4 % (37.0-53.0); Hemoglobin 14.2 g/dL (13.5-17.5); IMMATURE GRAN ABSOLUTE AUTO 0.02 K/mm3 (0.00-0.10); IMMATURE GRAN PERCENT AUTO 0 % (0-1); LYMPHOCYTES ABSOLUTE AUTO 1.86 K/mm3 (0.84-5.20); LYMPHOCYTES PERCENT AUTO 28 % (21-46); MONOCYTES ABSOLUTE AUTO 0.62 K/mm3 (0.16-1.47); MONOCYTES PERCENT AUTO 9 % (4-13); Mean Corpuscular HGB Conc 35.1 g/dL (31.5-36.5); Mean Corpuscular Volume 91 fL (80-100); Mean Platelet Volume 8.8 fL (9.1-12.4); NEUTROPHILS ABSOLUTE AUTO 3.62 K/mm3 (1.96-9.15); NEUTROPHILS PERCENT AUTO 55 % (41-73); Platelet Count 353 K/mm3 (150-400); RDW Coefficient Variation 12.7 % (11.7-14.2); RDW Standard Deviation 41.9 fL (35.1-46.3); Red Blood Cell Count 4.44 M/mm3 (4.30-5.90); White Blood Cell Count 6.64 K/mm3 (4.00-11.30)
[2022-10-08 11:53] LABS: Calcium, Blood 8.9 mg/dL (8.5-10.1); Potassium, Blood 3.5 mmol/L (3.5-5.5); Uric Acid, Blood 5.7 mg/dL (3.5-7.2)
== END | disposition home or self-care (01) ==
LOC: LAB 11:40 → LAB SHORT 11:40
PROVIDERS: Physician Assistant Medical
DX: M25.571 Pain in right ankle and joints of right foot (principal)
CPT/HCPCS: 80048; 84550; 85025; 85379

== ENCOUNTER 2023-09-03 19:18 | Emergency (ER) | payer OTHER ==
[~2023-09-03] VITALS: Ht 172.7 cm; Wt 101.2 kg
[~2023-09-03 19:18] MED LIST changes: +METO10 PO
[2023-09-03 19:34] VITALS: BP 155/98
[2023-09-03 19:59] LABS: BASOPHILS ABSOLUTE AUTO 0.11 K/mm3 (0.00-0.23); BASOPHILS PERCENT AUTO 1 % (0-2); EOSINOPHILS ABSOLUTE AUTO 0.93 K/mm3 (0.00-0.68); EOSINOPHILS PERCENT AUTO 10 % (0-6); Hematocrit 39.7 % (37.0-53.0); Hemoglobin 13.7 g/dL (13.5-17.5); IMMATURE GRAN ABSOLUTE AUTO 0.02 K/mm3 (0.00-0.10); IMMATURE GRAN PERCENT AUTO 0 % (0-1); LYMPHOCYTES ABSOLUTE AUTO 2.22 K/mm3 (0.84-5.20); LYMPHOCYTES PERCENT AUTO 24 % (21-46); MONOCYTES ABSOLUTE AUTO 0.76 K/mm3 (0.16-1.47); MONOCYTES PERCENT AUTO 8 % (4-13); Mean Corpuscular HGB Conc 34.5 g/dL (31.5-36.5); Mean Corpuscular Volume 90 fL (80-100); Mean Platelet Volume 8.8 fL (9.1-12.4); NEUTROPHILS ABSOLUTE AUTO 5.26 K/mm3 (1.96-9.15); NEUTROPHILS PERCENT AUTO 57 % (41-73); Platelet Count 307 K/mm3 (150-400); RDW Coefficient Variation 12.4 % (11.7-14.2); RDW Standard Deviation 41.3 fL (35.1-46.3); Red Blood Cell Count 4.42 M/mm3 (4.30-5.90)
[2023-09-03 20:18] LABS: Albumin, Blood 3.7 g/dL (3.4-5.0); Bilirubin, Total 0.4 mg/dL (0.1-1.0); Bun/Creatinine Ratio 15.2 (12.0-20.0); Calcium, Blood 8.8 mg/dL (8.5-10.1); Creatinine, Blood 1.12 mg/dL (0.60-1.20); Globulin, Blood 3.8 g/dL (2.2-4.0); Potassium, Blood 3.7 mmol/L (3.5-5.5); Total Protein, Blood 7.5 g/dL (6.4-8.2)
== END 2023-09-03 21:07 | disposition left against medical advice (07) ==
LOC: ER 19:18
PROVIDERS: Physician Assistant
DX: R07.9 Chest pain, unspecified (principal); Z53.21 Procedure and treatment not carried out due to patient leaving prior to being seen by health care provider
CPT/HCPCS: 80053; 84484; 85025; 93005; 93010

== ENCOUNTER 2024-03-21 09:58 | Emergency (ER) | payer OTHER ==
[~2024-03-21] VITALS: Ht 172.7 cm; Wt 90.7 kg
[2024-03-21 11:40] LABS: BASOPHILS ABSOLUTE AUTO 0.14 K/mm3 (0.00-0.23); BASOPHILS PERCENT AUTO 2 % (0-2); EOSINOPHILS ABSOLUTE AUTO 0.66 K/mm3 (0.00-0.68); EOSINOPHILS PERCENT AUTO 10 % (0-6); Hematocrit 44.6 % (37.0-53.0); Hemoglobin 15.1 g/dL (13.5-17.5); IMMATURE GRAN ABSOLUTE AUTO 0.02 K/mm3 (0.00-0.10); IMMATURE GRAN PERCENT AUTO 0 % (0-1); LYMPHOCYTES ABSOLUTE AUTO 1.86 K/mm3 (0.84-5.20); LYMPHOCYTES PERCENT AUTO 28 % (21-46); MONOCYTES ABSOLUTE AUTO 0.61 K/mm3 (0.16-1.47); MONOCYTES PERCENT AUTO 9 % (4-13); Mean Corpuscular HGB 30.9 pg (26.0-34.0); Mean Corpuscular HGB Conc 33.9 g/dL (31.5-36.5); Mean Corpuscular Volume 91 fL (80-100); Mean Platelet Volume 8.5 fL (9.1-12.4); NEUTROPHILS ABSOLUTE AUTO 3.25 K/mm3 (1.96-9.15); NEUTROPHILS PERCENT AUTO 50 % (41-73); Platelet Count 340 K/mm3 (150-400); RDW Coefficient Variation 12.5 % (11.7-14.2); RDW Standard Deviation 41.7 fL (35.1-46.3); Red Blood Cell Count 4.89 M/mm3 (4.30-5.90); White Blood Cell Count 6.54 K/mm3 (4.00-11.30)
[2024-03-21 12:09] LABS: Albumin, Blood 3.9 g/dL (3.4-5.0); Albumin/Globulin Ratio 0.9 (0.8-1.8); Bilirubin, Total 0.2 mg/dL (0.1-1.0); Bun/Creatinine Ratio 19.2 (12.0-20.0); Calcium, Blood 9.9 mg/dL (8.5-10.1); Creatinine, Blood 0.99 mg/dL (0.60-1.20); Globulin, Blood 4.3 g/dL (2.2-4.0); Potassium, Blood 4.2 mmol/L (3.5-5.5); Total Protein, Blood 8.2 g/dL (6.4-8.2)
[2024-03-21] MEDS ORDERED: Ibuprofen 400 MG Tab PO ONE (13:50)
[2024-03-21] MEDS ORDERED: LINE600 PO (14:37)
[2024-03-21 14:40] VITALS: BP 168/113
== END 2024-03-21 14:45 | disposition home or self-care (01) ==
LOC: ER 09:58
PROVIDERS: Student in an Organized Health Care Education/Training Program
DX: S81.801A Unspecified open wound, right lower leg, initial encounter (principal); B95.8 Unspecified staphylococcus as the cause of diseases classified elsewhere; K21.9 Gastro-esophageal reflux disease without esophagitis; I10 Essential (primary) hypertension; G43.909 Migraine, unspecified, not intractable, without status migrainosus; F17.200 Nicotine dependence, unspecified, uncomplicated; X58.XXXA Exposure to other specified factors, initial encounter
CPT/HCPCS: 73590; 80053; 85025; 99284-25; A9270

== ENCOUNTER → 2024-04-02 | Outpatient (CLI) | payer OTHER ==
[~2024-04-02] MED LIST changes: +LINE600 PO; +Mupirocin22 GM TOP
[2024-04-02 16:09] LABS: BASOPHILS ABSOLUTE AUTO 0.11 K/mm3 (0.00-0.23); BASOPHILS PERCENT AUTO 2 % (0-2); EOSINOPHILS ABSOLUTE AUTO 0.59 K/mm3 (0.00-0.68); EOSINOPHILS PERCENT AUTO 11 % (0-6); Hemoglobin 14.3 g/dL (13.5-17.5); IMMATURE GRAN ABSOLUTE AUTO 0.02 K/mm3 (0.00-0.10); IMMATURE GRAN PERCENT AUTO 0 % (0-1); LYMPHOCYTES ABSOLUTE AUTO 1.71 K/mm3 (0.84-5.20); LYMPHOCYTES PERCENT AUTO 32 % (21-46); MONOCYTES ABSOLUTE AUTO 0.72 K/mm3 (0.16-1.47); MONOCYTES PERCENT AUTO 14 % (4-13); Mean Corpuscular HGB 30.9 pg (26.0-34.0); Mean Corpuscular Volume 91 fL (80-100); Mean Platelet Volume 8.7 fL (9.1-12.4); NEUTROPHILS ABSOLUTE AUTO 2.15 K/mm3 (1.96-9.15); NEUTROPHILS PERCENT AUTO 41 % (41-73); Platelet Count 304 K/mm3 (150-400); RDW Coefficient Variation 12.7 % (11.7-14.2); RDW Standard Deviation 41.6 fL (35.1-46.3); Red Blood Cell Count 4.63 M/mm3 (4.30-5.90)
[2024-04-02 16:19] LABS: Albumin, Blood 3.9 g/dL (3.4-5.0); Bilirubin, Total 0.2 mg/dL (0.1-1.0); Bun/Creatinine Ratio 18.8 (12.0-20.0); Creatinine, Blood 0.96 mg/dL (0.60-1.20); Total Protein, Blood 7.9 g/dL (6.4-8.2)
[2024-04-05 16:20] LABS: HEPATITIS A ANTIBODY, IGM Negative (Negative); HEPATITIS B CORE ANTIBODY, IGM Negative (Negative); HEPATITIS B SURFACE ANTIGEN Negative (Negative); HEPATITIS C AB CIA INTERP Low Pos (Negative); HEPATITIS C ANTIBODY CIA INDEX 5.98 IV
[2024-04-07 06:17] LABS: HCV QNT BY NAAT (IU/ML) Not Detected; HCV QNT BY NAAT (LOG IU/ML) Not Detected; HCV QNT BY NAAT INTERP Not Detected (Not Detected)
== END ==
LOC: LAB SHORT 16:03 → LAB 16:03
PROVIDERS: Emergency Medicine
DX: L03.115 Cellulitis of right lower limb (principal); R74.8 Abnormal levels of other serum enzymes
CPT/HCPCS: 80053; 80074; 85025; 87522

== ENCOUNTER 2024-04-06 01:06 | Emergency (ER) | payer OTHER ==
[~2024-04-06] VITALS: Ht 172.7 cm; Wt 99.8 kg
[~2024-04-06 01:06] MED LIST changes: -Mupirocin22 GM TOP
[2024-04-06 01:55] LABS: BASOPHILS ABSOLUTE AUTO 0.14 K/mm3 (0.00-0.23); BASOPHILS PERCENT AUTO 1 % (0-2); EOSINOPHILS ABSOLUTE AUTO 0.82 K/mm3 (0.00-0.68); EOSINOPHILS PERCENT AUTO 8 % (0-6); Hematocrit 46.3 % (37.0-53.0); IMMATURE GRAN ABSOLUTE AUTO 0.04 K/mm3 (0.00-0.10); IMMATURE GRAN PERCENT AUTO 0 % (0-1); LYMPHOCYTES ABSOLUTE AUTO 3.44 K/mm3 (0.84-5.20); LYMPHOCYTES PERCENT AUTO 34 % (21-46); MONOCYTES ABSOLUTE AUTO 1.01 K/mm3 (0.16-1.47); MONOCYTES PERCENT AUTO 10 % (4-13); Mean Corpuscular HGB 31.4 pg (26.0-34.0); Mean Corpuscular HGB Conc 34.6 g/dL (31.5-36.5); Mean Corpuscular Volume 91 fL (80-100); Mean Platelet Volume 8.6 fL (9.1-12.4); NEUTROPHILS PERCENT AUTO 46 % (41-73); Platelet Count 348 K/mm3 (150-400); RDW Coefficient Variation 12.5 % (11.7-14.2); RDW Standard Deviation 41.9 fL (35.1-46.3); Red Blood Cell Count 5.09 M/mm3 (4.30-5.90); White Blood Cell Count 10.05 K/mm3 (4.00-11.30)
[2024-04-06] MEDS ORDERED: Mupirocin22 GM TOP (02:08)
[2024-04-06 02:24] VITALS: BP 172/103
== END 2024-04-06 02:23 | disposition home or self-care (01) ==
LOC: ER 01:06
PROVIDERS: Emergency Medicine
DX: S81.801A Unspecified open wound, right lower leg, initial encounter (principal); X58.XXXA Exposure to other specified factors, initial encounter
CPT/HCPCS: 85025; 99283

== ENCOUNTER 2024-04-10 04:05 | Day surgery (SDC) | payer OTHER ==
[~2024-04-10 04:05] MED LIST changes: +Mupirocin22 GM TOP
[2024-04-10] MEDS ORDERED: Lidocaine HCl 4% Cream 5 GM ONE (08:12)
== END 2024-04-10 23:00 | disposition home or self-care (01) ==
LOC: WOUND 04:05
DX: E11.622 Type 2 diabetes mellitus with other skin ulcer (principal); L97.212 Non-pressure chronic ulcer of right calf with fat layer exposed; S81.811A Laceration without foreign body, right lower leg, initial encounter; X58.XXXA Exposure to other specified factors, initial encounter; I10 Essential (primary) hypertension; F17.200 Nicotine dependence, unspecified, uncomplicated
CPT/HCPCS: A6213; A9270; G0463

== ENCOUNTER 2024-04-14 22:48 | Emergency (ER) | payer OTHER ==
[~2024-04-14] VITALS: Ht 172.7 cm; Wt 100.7 kg
[2024-04-15 00:15] VITALS: BP 139/99
== END 2024-04-15 00:18 | disposition home or self-care (01) ==
LOC: ER 22:48
DX: S81.811D Laceration without foreign body, right lower leg, subsequent encounter (principal); K21.9 Gastro-esophageal reflux disease without esophagitis; I10 Essential (primary) hypertension; G43.909 Migraine, unspecified, not intractable, without status migrainosus; F17.200 Nicotine dependence, unspecified, uncomplicated; X58.XXXD Exposure to other specified factors, subsequent encounter; Z79.899 Other long term (current) drug therapy
CPT/HCPCS: 99282

== ENCOUNTER 2024-04-16 01:18 | Day surgery (SDC) | payer OTHER ==
[2024-04-16] MEDS ORDERED: Lidocaine HCl 4% Cream 5 GM ONE (15:12)
[2024-04-16] MEDS ORDERED: Silver Nitr/Potassium Nitrate 1 EA APPL ONE (15:36)
== END 2024-04-16 23:00 | disposition home or self-care (01) ==
LOC: WOUND 01:18
DX: S81.801A Unspecified open wound, right lower leg, initial encounter (principal); L97.215 Non-pressure chronic ulcer of right calf with muscle involvement without evidence of necrosis; X58.XXXA Exposure to other specified factors, initial encounter
CPT/HCPCS: A6213; A9270

== ENCOUNTER → 2024-04-23 | Day surgery (SDC) | payer OTHER ==
[~2024-04-23] MED LIST changes: +Lidocaine HCl 4% Cream 5 GM ONE
== END ==
LOC: WOUND 02:21
DX: S81.811A Laceration without foreign body, right lower leg, initial encounter (principal); W22.8XXA Striking against or struck by other objects, initial encounter; L97.812 Non-pressure chronic ulcer of other part of right lower leg with fat layer exposed
CPT/HCPCS: A6213; A9270

== ENCOUNTER 2024-04-29 13:59 | Day surgery (SDC) | payer OTHER ==
[~2024-04-29 13:59] MED LIST changes: -Lidocaine HCl 4% Cream 5 GM ONE
[2024-04-29] MEDS ORDERED: Lidocaine HCl 4% Cream 5 GM ONE (14:35)
== END 2024-04-29 23:00 | disposition home or self-care (01) ==
LOC: WOUND 13:59
DX: S81.811A Laceration without foreign body, right lower leg, initial encounter (principal); X58.XXXA Exposure to other specified factors, initial encounter
CPT/HCPCS: A6213; A9270

== ENCOUNTER 2024-05-07 01:01 | Day surgery (SDC) | payer OTHER ==
[2024-05-07] MEDS ORDERED: Lidocaine HCl 4% Cream 5 GM ONE (15:01)
== END 2024-05-07 23:00 | disposition home or self-care (01) ==
LOC: WOUND 01:01
DX: L97.215 Non-pressure chronic ulcer of right calf with muscle involvement without evidence of necrosis (principal)
CPT/HCPCS: A6213; A9270

== ENCOUNTER 2024-05-14 04:06 | Day surgery (SDC) | payer OTHER ==
[2024-05-14] MEDS ORDERED: Lidocaine HCl 4% Cream 5 GM ONE (09:00)
== END 2024-05-14 23:00 | disposition home or self-care (01) ==
LOC: WOUND 04:06
DX: L97.215 Non-pressure chronic ulcer of right calf with muscle involvement without evidence of necrosis (principal)
CPT/HCPCS: A6213; A9270

== ENCOUNTER 2024-05-21 00:08 | Day surgery (SDC) | payer OTHER ==
[2024-05-21] MEDS ORDERED: Lidocaine HCl 4% Cream 5 GM ONE (09:08)
== END 2024-05-21 23:00 | disposition home or self-care (01) ==
LOC: WOUND 00:08
DX: L97.812 Non-pressure chronic ulcer of other part of right lower leg with fat layer exposed (principal); L97.215 Non-pressure chronic ulcer of right calf with muscle involvement without evidence of necrosis
CPT/HCPCS: A6213; A9270

== ENCOUNTER 2024-05-28 04:14 | Day surgery (SDC) | payer OTHER ==
[2024-05-28] MEDS ORDERED: Lidocaine HCl 4% Cream 5 GM ONE (08:46)
== END 2024-05-28 23:00 | disposition home or self-care (01) ==
LOC: WOUND 04:14
DX: L97.212 Non-pressure chronic ulcer of right calf with fat layer exposed (principal)
CPT/HCPCS: A6213; A9270

== ENCOUNTER 2024-06-04 01:50 | Day surgery (SDC) | payer OTHER ==
[2024-06-04] MEDS ORDERED: Lidocaine HCl 4% Cream 5 GM ONE (08:42)
== END 2024-06-04 23:00 | disposition home or self-care (01) ==
LOC: WOUND
DX: L97.812 Non-pressure chronic ulcer of other part of right lower leg with fat layer exposed (principal)
CPT/HCPCS: A6213; A9270; G0463

== ENCOUNTER 2024-06-11 02:04 | Day surgery (SDC) | payer OTHER ==
[2024-06-11] MEDS ORDERED: Lidocaine HCl 4% Cream 5 GM ONE (08:46)
== END 2024-06-11 23:00 | disposition home or self-care (01) ==
LOC: WOUND 02:04
DX: L97.812 Non-pressure chronic ulcer of other part of right lower leg with fat layer exposed (principal); I87.2 Venous insufficiency (chronic) (peripheral); I73.9 Peripheral vascular disease, unspecified
CPT/HCPCS: A6213; A9270

== ENCOUNTER 2024-06-18 01:34 | Day surgery (SDC) | payer OTHER ==
[2024-06-18] MEDS ORDERED: Lidocaine HCl 4% Cream 5 GM ONE (08:32)
== END 2024-06-18 23:00 | disposition home or self-care (01) ==
LOC: WOUND 01:34
DX: L97.215 Non-pressure chronic ulcer of right calf with muscle involvement without evidence of necrosis (principal); I87.2 Venous insufficiency (chronic) (peripheral); I73.9 Peripheral vascular disease, unspecified
CPT/HCPCS: A6213; A9270

== ENCOUNTER 2024-06-25 01:10 | Day surgery (SDC) | payer OTHER ==
[2024-06-25] MEDS ORDERED: Lidocaine HCl 4% Cream 5 GM ONE (08:39)
== END 2024-06-25 23:00 | disposition home or self-care (01) ==
LOC: WOUND 01:10
DX: L97.212 Non-pressure chronic ulcer of right calf with fat layer exposed (principal); I87.2 Venous insufficiency (chronic) (peripheral); I73.9 Peripheral vascular disease, unspecified
CPT/HCPCS: A6213; A9270

== ENCOUNTER 2024-07-03 04:23 | Day surgery (SDC) | payer OTHER | END 2024-07-03 23:00 | disposition home or self-care (01) | LOC: WOUND 04:23 | DX: L97.215 Non-pressure chronic ulcer of right calf with muscle involvement without evidence of necrosis (principal); I87.2 Venous insufficiency (chronic) (peripheral); I73.9 Peripheral vascular disease, unspecified | CPT/HCPCS: A6213; G0463 ==

== ENCOUNTER 2024-07-09 01:17 | Day surgery (SDC) | payer OTHER ==
[2024-07-09] MEDS ORDERED: Lidocaine HCl 4% Cream 5 GM ONE (10:04)
== END 2024-07-09 23:00 | disposition home or self-care (01) ==
LOC: WOUND 01:17
DX: L97.812 Non-pressure chronic ulcer of other part of right lower leg with fat layer exposed (principal); I87.2 Venous insufficiency (chronic) (peripheral); I73.9 Peripheral vascular disease, unspecified
CPT/HCPCS: A9270

== ENCOUNTER 2024-08-20 03:50 | Day surgery (SDC) | payer OTHER ==
[~2024-08-20 03:50] MED LIST changes: +MONDOXYNE NL100 MG PO
== END 2024-08-20 23:00 | disposition home or self-care (01) ==
LOC: WOUND 03:50
DX: L97.215 Non-pressure chronic ulcer of right calf with muscle involvement without evidence of necrosis (principal); I87.2 Venous insufficiency (chronic) (peripheral); I73.9 Peripheral vascular disease, unspecified
CPT/HCPCS: A9270

== ENCOUNTER 2024-08-26 10:43 | Day surgery (SDC) | payer OTHER ==
[2024-08-26] MEDS ORDERED: Lidocaine HCl 4% Cream 5 GM ONE (14:11)
== END 2024-08-26 23:00 | disposition home or self-care (01) ==
LOC: WOUND 10:43
DX: L97.812 Non-pressure chronic ulcer of other part of right lower leg with fat layer exposed (principal); L97.222 Non-pressure chronic ulcer of left calf with fat layer exposed; T24.232D Burn of second degree of left lower leg, subsequent encounter; I87.2 Venous insufficiency (chronic) (peripheral); I73.9 Peripheral vascular disease, unspecified
CPT/HCPCS: A9270

== ENCOUNTER 2024-08-28 11:21 | Day surgery (SDC) | payer OTHER | END 2024-08-28 23:00 | disposition home or self-care (01) | LOC: WOUND 11:21 | DX: L97.215 Non-pressure chronic ulcer of right calf with muscle involvement without evidence of necrosis (principal); T24.232D Burn of second degree of left lower leg, subsequent encounter; I87.2 Venous insufficiency (chronic) (peripheral); I73.9 Peripheral vascular disease, unspecified; R06.02 Shortness of breath; J44.1 Chronic obstructive pulmonary disease with (acute) exacerbation | CPT/HCPCS: 71046 ==

== ENCOUNTER 2024-09-01 01:02 | Day surgery (SDC) | payer OTHER ==
[2024-09-01] MEDS ORDERED: Lidocaine HCl 4% Cream 5 GM ONE (13:07)
== END 2024-09-01 23:00 | disposition home or self-care (01) ==
LOC: WOUND
DX: S81.811A Laceration without foreign body, right lower leg, initial encounter (principal); I87.2 Venous insufficiency (chronic) (peripheral); I73.9 Peripheral vascular disease, unspecified; W22.09XA Striking against other stationary object, initial encounter
CPT/HCPCS: A9270

== ENCOUNTER 2024-09-03 09:04 | Emergency (ER) | payer OTHER ==
[~2024-09-03] VITALS: Ht 172.7 cm; Wt 104.3 kg
[2024-09-03 09:43] LABS: BASOPHILS ABSOLUTE AUTO 0.11 K/mm3 (0.00-0.23); BASOPHILS PERCENT AUTO 2 % (0-2); EOSINOPHILS ABSOLUTE AUTO 0.28 K/mm3 (0.00-0.68); EOSINOPHILS PERCENT AUTO 4 % (0-6); Hematocrit 41.1 % (37.0-53.0); Hemoglobin 14.0 g/dL (13.5-17.5); IMMATURE GRAN ABSOLUTE AUTO 0.04 K/mm3 (0.00-0.10); IMMATURE GRAN PERCENT AUTO 1 % (0-1); LYMPHOCYTES ABSOLUTE AUTO 1.84 K/mm3 (0.84-5.20); LYMPHOCYTES PERCENT AUTO 26 % (21-46); MONOCYTES ABSOLUTE AUTO 0.46 K/mm3 (0.16-1.47); MONOCYTES PERCENT AUTO 6 % (4-13); Mean Corpuscular HGB Conc 34.1 g/dL (31.5-36.5); Mean Corpuscular Volume 91 fL (80-100); NEUTROPHILS ABSOLUTE AUTO 4.46 K/mm3 (1.96-9.15); NEUTROPHILS PERCENT AUTO 62 % (41-73); NRBC ABSOLUTE 0.00 K/mm3 (0.00-0.02); NRBC Auto 0.0 /100 WBC (0.0-0.2); Platelet Count 354 K/mm3 (150-400); RDW Coefficient Variation 12.7 % (11.7-14.2); RDW Standard Deviation 41.5 fL (35.1-46.3)
[2024-09-03 09:53] LABS: Alanine Aminotransfer (ALT/SGP 104.0 U/L (12-78); Albumin, Blood 3.7 g/dL (3.4-5.0); Albumin/Globulin Ratio 0.9 (0.8-1.8); Anion Gap 8.0 mmol/L (3-11); Aspartate Aminotrans (AST/SGOT 32.0 U/L (12-37); Bilirubin, Total 0.2 mg/dL (0.1-1.0); Blood Urea Nitrogen 24.0 mg/dL (8-24); CO2, Blood 25.0 mmol/L (21-32); Calcium, Blood 8.8 mg/dL (8.5-10.1); Chloride, Blood 108.0 mmol/L (98-108); Creatinine, Blood 0.85 mg/dL (0.60-1.20); Globulin, Blood 4.2 g/dL (2.2-4.0); Glucose, Blood 125.0 mg/dL (70-99); Potassium, Blood 4.5 mmol/L (3.5-5.5); Sodium, Blood 136.0 mmol/L (136-145); Total Protein, Blood 7.9 g/dL (6.4-8.2)
[2024-09-03] MEDS ORDERED: Ketorolac Tromethamine 15mg Vial IV ONE (11:30)
[2024-09-03] MEDS ORDERED: LOSA25 PO (11:46)
[2024-09-03] MEDS ORDERED: Pulmicort Fle180 MCG INH (11:46)
[2024-09-03] MEDS ORDERED: ALBU90OI INH (11:46)
[2024-09-03] MEDS ORDERED: TRAM50 PO (11:47)
[2024-09-03] MEDS ORDERED: TRAZ50 PO (11:47)
[2024-09-03] MEDS ORDERED: Ipratropium/Albuterol SulF 2.5-0.5MG/3 ML Amp INH ONE (12:00)
[2024-09-03] MEDS ORDERED: Albuterol 2.5 MG/3 ML VIAL INH SCH (13:20)
[2024-09-03] MEDS ORDERED: Zithromax500 MG PO (14:45)
[2024-09-03] MEDS ORDERED: PRED20 PO (14:45)
[2024-09-03 15:00] VITALS: BP 179/98
== END 2024-09-03 15:05 | disposition home or self-care (01) ==
LOC: ER 09:04
PROVIDERS: Student in an Organized Health Care Education/Training Program
DX: I51.7 Cardiomegaly (principal); J44.1 Chronic obstructive pulmonary disease with (acute) exacerbation; K21.9 Gastro-esophageal reflux disease without esophagitis; G43.909 Migraine, unspecified, not intractable, without status migrainosus; I10 Essential (primary) hypertension; F17.210 Nicotine dependence, cigarettes, uncomplicated
CPT/HCPCS: 71046; 80053; 83880; 84484; 85025; 85379; 93005; 93010; 96374; 96375; 99285-25; J1885; J2919

== ENCOUNTER 2024-09-04 04:19 | Emergency (ER) | payer OTHER ==
[~2024-09-04] VITALS: Ht 172.7 cm; Wt 104.3 kg
[~2024-09-04 04:19] MED LIST changes: +LOSA25 PO; +PRED20 PO; +Pulmicort Fle180 MCG INH; +TRAZ50 PO; +Zithromax500 MG PO
[2024-09-04 04:45] VITALS: BP 145/96
== END 2024-09-04 05:16 | disposition left against medical advice (07) ==
LOC: ER 04:19
DX: Z53.21 Procedure and treatment not carried out due to patient leaving prior to being seen by health care provider (principal)
CPT/HCPCS: 93005; 93010

== ENCOUNTER 2024-09-08 13:53 | Emergency (ER) | payer OTHER ==
[~2024-09-08] VITALS: Ht 172.7 cm; Wt 104.3 kg
[2024-09-08 14:41] LABS: BASOPHILS ABSOLUTE AUTO 0.04 K/mm3 (0.00-0.23); BASOPHILS PERCENT AUTO 1 % (0-2); EOSINOPHILS ABSOLUTE AUTO 0.02 K/mm3 (0.00-0.68); EOSINOPHILS PERCENT AUTO 0 % (0-6); Hematocrit 41.4 % (37.0-53.0); Hemoglobin 14.6 g/dL (13.5-17.5); IMMATURE GRAN ABSOLUTE AUTO 0.04 K/mm3 (0.00-0.10); IMMATURE GRAN PERCENT AUTO 1 % (0-1); LYMPHOCYTES ABSOLUTE AUTO 1.25 K/mm3 (0.84-5.20); LYMPHOCYTES PERCENT AUTO 17 % (21-46); MONOCYTES ABSOLUTE AUTO 0.13 K/mm3 (0.16-1.47); MONOCYTES PERCENT AUTO 2 % (4-13); Mean Corpuscular HGB Conc 35.3 g/dL (31.5-36.5); Mean Corpuscular Volume 90 fL (80-100); NEUTROPHILS ABSOLUTE AUTO 5.84 K/mm3 (1.96-9.15); NEUTROPHILS PERCENT AUTO 80 % (41-73); NRBC ABSOLUTE 0.00 K/mm3 (0.00-0.02); NRBC Auto 0.0 /100 WBC (0.0-0.2); Platelet Count 378 K/mm3 (150-400); RDW Coefficient Variation 13.0 % (11.7-14.2); RDW Standard Deviation 42.4 fL (35.1-46.3)
[2024-09-08 14:52] LABS: Alanine Aminotransfer (ALT/SGP 122.0 U/L (12-78); Albumin, Blood 4.0 g/dL (3.4-5.0); Albumin/Globulin Ratio 0.9 (0.8-1.8); Anion Gap 8.0 mmol/L (3-11); Aspartate Aminotrans (AST/SGOT 49.0 U/L (12-37); Bilirubin, Total 0.5 mg/dL (0.1-1.0); Blood Urea Nitrogen 20.0 mg/dL (8-24); CO2, Blood 24.0 mmol/L (21-32); Calcium, Blood 9.4 mg/dL (8.5-10.1); Chloride, Blood 108.0 mmol/L (98-108); Creatinine, Blood 0.85 mg/dL (0.60-1.20); Globulin, Blood 4.4 g/dL (2.2-4.0); Glucose, Blood 145.0 mg/dL (70-99); Potassium, Blood 3.9 mmol/L (3.5-5.5); Sodium, Blood 136.0 mmol/L (136-145); Total Protein, Blood 8.4 g/dL (6.4-8.2)
[2024-09-08] MEDS ORDERED: Ipratropium/Albuterol SulF 2.5-0.5MG/3 ML Amp INH ONE (15:20)
[2024-09-08] MEDS ORDERED: Ketorolac Tromethamine 15mg Vial IV ONE (15:25)
[2024-09-08] MEDS ORDERED: Albuterol 2.5 MG/3 ML VIAL INH SCH (16:00)
[2024-09-08 17:59] VITALS: BP 132/99
== END 2024-09-08 18:01 | disposition home or self-care (01) ==
LOC: ER 13:53
PROVIDERS: Physician Assistant
DX: J44.1 Chronic obstructive pulmonary disease with (acute) exacerbation (principal); I10 Essential (primary) hypertension; K21.9 Gastro-esophageal reflux disease without esophagitis; F17.210 Nicotine dependence, cigarettes, uncomplicated; Z79.51 Long term (current) use of inhaled steroids; Z79.899 Other long term (current) drug therapy; Z59.89 Other problems related to housing and economic circumstances
CPT/HCPCS: 71045; 80053; 84484; 85025; 93005; 93010; 96374; 96375; 99285-25; J1885; J2919

== ENCOUNTER 2024-09-10 02:55 | Day surgery (SDC) | payer OTHER ==
[2024-09-10] MEDS ORDERED: Lidocaine HCl 4% Cream 5 GM ONE (08:22)
== END 2024-09-10 23:00 | disposition home or self-care (01) ==
LOC: WOUND 02:55
DX: E11.622 Type 2 diabetes mellitus with other skin ulcer (principal); L97.212 Non-pressure chronic ulcer of right calf with fat layer exposed; I87.2 Venous insufficiency (chronic) (peripheral); J44.9 Chronic obstructive pulmonary disease, unspecified; I12.0 Hypertensive chronic kidney disease with stage 5 chronic kidney disease or end stage renal disease; E11.22 Type 2 diabetes mellitus with diabetic chronic kidney disease; N18.6 End stage renal disease; F17.200 Nicotine dependence, unspecified, uncomplicated
CPT/HCPCS: A9270

== ENCOUNTER 2024-09-17 03:34 | Day surgery (SDC) | payer OTHER ==
[2024-09-17] MEDS ORDERED: Lidocaine HCl 4% Cream 5 GM ONE (08:27)
== END 2024-09-17 23:00 | disposition home or self-care (01) ==
LOC: WOUND 03:34
DX: L97.212 Non-pressure chronic ulcer of right calf with fat layer exposed (principal); I87.2 Venous insufficiency (chronic) (peripheral); I73.9 Peripheral vascular disease, unspecified
CPT/HCPCS: A9270

== ENCOUNTER 2024-09-24 01:46 | Day surgery (SDC) | payer OTHER ==
[2024-09-24] MEDS ORDERED: Lidocaine HCl 4% Cream 5 GM ONE (08:35)
== END 2024-09-24 23:00 | disposition home or self-care (01) ==
LOC: WOUND 01:46
DX: I87.2 Venous insufficiency (chronic) (peripheral) (principal); I73.9 Peripheral vascular disease, unspecified
CPT/HCPCS: A9270; G0463